=== PATIENT | female | born 1980 ===

== ENCOUNTER 2017-10-18 20:45 | Emergency (ER) | payer MEDICAID, OTHER ==
--- NOTE | 2017-10-18 21:09 | ED PDOC ---
HPI: Psych/Substance Abuse Time Seen by Provider: 10/18/17 20:56 Chief Complaint (Nursing): Psychiatric Evaluation Chief Complaint (Provider): Psychiatric evaluation ED Caveat: Uncooperative Additional Complaint(s): Nenita Brambila, a 37 year old female, was brought to the emergency department via EMS from the custodial for psychiatric evaluation after expressing suicidal ideations. Patient is extremely agitated upon arrival, uncooperative, refusing vitals and refusing to answer provider questions. No physical complaints expressed and no reports of trauma. Past Medical History Reviewed: Historical Data, Nursing Documentation, Vital Signs, Unable To Obtain (uncooperative, medical history obtained from prior charts) - Medical History PMH: Anemia, Anxiety, Asthma, Bipolar Disorder, CAD, Depression, Gastritis, HTN , Hypercholesterolemia, Schizophrenia - Surgical History Other surgeries: skin graft to face - Family History Family History: States: Unknown Family Hx - Living Arrangements Living Arrangements: Other (custodial) - Home Medications Home Medications: Ambulatory Orders Medication Instructions Recorded Benztropine [Cogentin] 1 mg PO 0800,1999 #30 tab 05/25/17 Metoprolol Succinate XL [Toprol XL] 12.5 mg PO 0800,1300 #14 tab 05/25/17 Pantoprazole [Protonix EC Tab] 40 mg PO 0600,1600 #14 ect 05/25/17 QUEtiapine [Seroquel] 100 mg PO 1999 #14 tab 05/25/17 Topiramate [Topamax] 25 mg PO 0800 #14 tab 05/25/17 Topiramate [Topamax] 50 mg PO 1300 #14 tab 05/25/17 Topiramate [Topamax] 100 mg PO 1999 #14 tab 05/25/17 Zolpidem [Ambien] 10 mg PO 2000 PRN #14 tab 05/25/17 clonazePAM [clonAZEPAM] 1 mg PO 0800,1300 #30 tab 05/25/17 - Allergies Allergies/Adverse Reactions: Allergies Allergy/AdvReac Type Severity Reaction Status Date / Time diphenhydramine HCl Allergy ANAPHYLAXIS Verified 10/18/17 20:47 [From Benadryl] FISH Allergy RASH Verified 10/18/17 20:47 fluphenazine [From Prolixin] Allergy ANAPHYLAXIS Verified 10/18/17 20:47 haloperidol [From Haldol] AdvReac SHORTNESS Verified 10/18/17 20:47 OF BREATH haloperidol lactate AdvReac SHORTNESS Verified 10/18/17 20:47 [From Haldol] OF BREATH seafood Allergy RASH Uncoded 07/18/17 16:18 Review of Systems Review Of Systems: ROS cannot be obtained secondary to pt's inabilty to answer questions. (patient unwilling to answer questions) Physical Exam - Reviewed Nursing Documentation Reviewed: Yes Vital Signs Reviewed: Yes - Physical Exam Comments: GENERAL APPEARANCE: Patient is awake, alert, agitated, yelling at ED staff. (+) flight of ideas ENMT: Mucous membranes moist. Airway patent: (-) stridor. NECK: Supple, FROM HEART AND CARDIOVASCULAR: (-) irregularity CHEST AND RESPIRATORY: (-) rales, (-) rhonchi, (-) wheezes; breath sounds equal. ABDOMEN: Soft, (-) distention, (-) tenderness, (-) guarding. NEURO AND PSYCH: Mental status as above. EOMI; (-) facial asymmetry. Gait: steady. Medical Decision Making Medical Decision Making: Time: 20:55 Impression: Psychiatric evaluation Initial Plan: --Crisis eval --1:1 observation 2139 Per crisis evaluation, patient to be discharged with the diagnosis of schizoaffective disorder per Dr Avila. Patient was referred to [facility] custodial by crisis. On exam, patient remains AAOx3, in no acute distress. On exam, neck is supple, lungs CTA, cardiac RRR, neuro exam shows no focal findings. Stable for discharge. Diagnostic results d/w the patient in great detail. Dx of schizoaffective disorder d/w the patient. Based on history, exam and diagnostic results plan will be for discharge. Advised to follow up with primary care physician / psych in 1-2 days without fail. Return to the emergency room at any time for any new or worsening symptoms. Patient states she fully agrees with and understands discharge instructions. States that she agrees with the plan and disposition. Verbalized and repeated discharge instructions and plan. I have given the patient opportunity to ask any additional questions. Scribe Attestation: Documented by Nena Medina, acting as a scribe for Dorita Spencer PA-C. Provider Scribe Attestation: All medical record entries made by the Scribe were at my direction and personally dictated by me. I have reviewed the chart and agree that the record accurately reflects my personal performance of the history, physical exam, medical decision making, and the department course for this patient. I have also personally directed, reviewed, and agree with the discharge instructions and disposition. Disposition - Clinical Impression Clinical Impression: Schizoaffective disorder - Patient ED Disposition Is Patient to be Admitted: No Counseled Patient/Family Regarding: Studies Performed, Diagnosis, Need For Followup - Disposition Referrals: [facility] [Outside] [facility] [Outside] Disposition: Routine/Home Disposition Time: 21:38 Condition: STABLE Additional Instructions: The emergency medical care you received today was directed at your acute symptoms. If you were prescribed any medication, please fill it and take as directed. It may take several days for your symptoms to resolve. Return to the Emergency Department if your symptoms worsen, do not improve, or if you have any other problems. Please contact your doctor in 2 days for re-evaluation and follow up / or call one of the physicians/clinics you have been referred to that are listed on the Patient Visit Information form that is included in your discharge packet. Bring any paperwork you were given at discharge with you along with any medications you are taking to your follow up visit. Our treatment cannot replace ongoing medical care by a primary care provider (PCP) outside of the emergency department. Instructions: Schizoaffective Disorder Forms: [employer] (Telugu) Print Language: PARAGUAYAN - POA Present On Arrival: None
[2017-10-18 22:17] VITALS: BP 118/72; PULSE 81; RESP 18; TEMP 97.7; O2SAT 98
== END 2017-10-18 22:00 | disposition home or self-care (01) ==
LOC: H.ER 20:45
DX: F25.9 Schizoaffective disorder, unspecified (principal); Z86.59 Personal history of other mental and behavioral disorders; E78.00 Pure hypercholesterolemia, unspecified; I10 Essential (primary) hypertension; I25.10 Atherosclerotic heart disease of native coronary artery without angina pectoris; J45.909 Unspecified asthma, uncomplicated; Z00.8 Encounter for other general examination

== ENCOUNTER 2017-10-18 23:23 | Emergency (ER) | payer OTHER ==
[2017-10-18 23:27] VITALS: BP 128/86; PULSE 89; RESP 16; TEMP 98.8; O2SAT 99
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
== END 2017-10-19 07:14 | disposition home or self-care (01) ==
LOC: H.ER 23:23
DX: Z59.0 Homelessness (principal); Z86.59 Personal history of other mental and behavioral disorders; I10 Essential (primary) hypertension; J45.909 Unspecified asthma, uncomplicated; I25.10 Atherosclerotic heart disease of native coronary artery without angina pectoris; E78.00 Pure hypercholesterolemia, unspecified

== ENCOUNTER 2017-10-19 17:47 | Emergency (ER) | payer OTHER ==
--- NOTE | 2017-10-19 18:13 | ED PDOC ---
HPI: Psych/Substance Abuse Time Seen by Provider: 10/19/17 17:50 Chief Complaint (Nursing): Psychiatric Evaluation Chief Complaint (Provider): Denies complaints ED Caveat: Acuity of Condition History Per: Patient History/Exam Limitations: no limitations Current Symptoms Are (Timing): Still Present Additional Complaint(s): 37 yo female with history of schizoaffective disorder presents for evaluation with EMS. According to EMS pt was aggressive at residential after being told she could not stay. Pt was seen twice in ER yesterday. No chest pain, SOB, N/V/ D. Pt deneis SI/HI. PT states that she is not hearing voices or seeing things. Pt upset. States she is not allow in the shelters but has no where else to go. Past Medical History Reviewed: Historical Data, Nursing Documentation, Vital Signs Vital Signs: Last Vital Signs Temp 98 F 10/19/17 18:00 Pulse 128 H 10/19/17 18:00 Resp 20 10/19/17 18:00 BP Pulse Ox 99 10/19/17 18:00 - Medical History PMH: Anemia, Anxiety, Asthma, Bipolar Disorder, CAD, Depression, Gastritis, HTN , Hypercholesterolemia, Schizophrenia Denies: Diabetes, Hepatitis, HIV, End Stage Renal Disease, Chronic Kidney Disease, Seizures, Sexually Transmitted Disease - Family History Family History: States: Unknown Family Hx - Immunization History Hx Tetanus Toxoid Vaccination: No Hx Influenza Vaccination: Yes Hx Pneumococcal Vaccination: No - Home Medications Home Medications: Ambulatory Orders Medication Instructions Recorded Benztropine [Cogentin] 1 mg PO 0800,1999 #30 tab 05/25/17 Metoprolol Succinate XL [Toprol XL] 12.5 mg PO 0800,1300 #14 tab 05/25/17 Pantoprazole [Protonix EC Tab] 40 mg PO 0600,1600 #14 ect 05/25/17 QUEtiapine [Seroquel] 100 mg PO 1999 #14 tab 05/25/17 Topiramate [Topamax] 25 mg PO 0800 #14 tab 05/25/17 Topiramate [Topamax] 50 mg PO 1300 #14 tab 05/25/17 Topiramate [Topamax] 100 mg PO 1999 #14 tab 05/25/17 Zolpidem [Ambien] 10 mg PO 1999 PRN #14 tab 05/25/17 clonazePAM [clonAZEPAM] 1 mg PO 0800,1300 #30 tab 05/25/17 - Allergies Allergies/Adverse Reactions: Allergies Allergy/AdvReac Type Severity Reaction Status Date / Time diphenhydramine HCl Allergy ANAPHYLAXIS Verified 10/19/17 18:00 [From Benadryl] FISH Allergy RASH Verified 10/19/17 18:00 fluphenazine [From Prolixin] Allergy ANAPHYLAXIS Verified 10/19/17 18:00 haloperidol [From Haldol] AdvReac SHORTNESS Verified 10/19/17 18:00 OF BREATH haloperidol lactate AdvReac SHORTNESS Verified 10/19/17 18:00 [From Haldol] OF BREATH seafood Allergy RASH Uncoded 10/19/17 18:00 Review of Systems ROS Statement: Except As Marked, All Systems Reviewed And Found Negative Constitutional: Negative for: Fever, Chills Respiratory: Negative for: Cough, Shortness of Breath Gastrointestinal: Negative for: Nausea, Vomiting, Abdominal Pain Genitourinary Female: Negative for: Dysuria Musculoskeletal: Negative for: Neck Pain Physical Exam - Reviewed Nursing Documentation Reviewed: Yes Vital Signs Reviewed: Yes - Physical Exam Appears: Positive for: Well, Non-toxic, No Acute Distress Head Exam: Positive for: ATRAUMATIC, NORMAL INSPECTION, NORMOCEPHALIC Skin: Positive for: Normal Color, Warm, DRY Eye Exam: Positive for: Normal appearance ENT: Positive for: Normal ENT Inspection Neck: Positive for: Normal, Painless ROM Cardiovascular/Chest: Positive for: Regular Rate, Rhythm Respiratory: Positive for: Normal Breath Sounds. Negative for: Accessory Muscle Use, Respiratory Distress Back: Positive for: Normal Inspection Extremity: Positive for: Normal ROM Neurologic/Psych: Positive for: Alert, Oriented - ECG O2 Sat by Pulse Oximetry: 99 Disposition - Clinical Impression Clinical Impression: Schizoaffective disorder - Patient ED Disposition Is Patient to be Admitted: No Counseled Patient/Family Regarding: Diagnosis, Need For Followup - Disposition Disposition: Routine/Home Disposition Time: 18:11 Condition: STABLE Instructions: Schizoaffective Disorder
[2017-10-19 18:16] VITALS: RESP 19; TEMP 97
[2017-10-19 18:28] VITALS: BP 120/90
[2017-10-19 18:32] VITALS: PULSE 76
[2017-10-19 18:36] VITALS: O2SAT 99
== END 2017-10-19 18:32 | disposition home or self-care (01) ==
LOC: H.ER 17:47
DX: F25.9 Schizoaffective disorder, unspecified (principal)

== ENCOUNTER 2018-01-20 20:21 | Inpatient (IN) | payer MEDICAID, OTHER ==
[2018-01-20 20:21] VITALS: BMI 32.4
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
[2018-01-20 21:55] LABS: BASO # 0.1 K/uL (0.0-0.2); BASO % 0.8 % (0.0-2.0); EOS % 0.2 % (0.0-4.0); HEMOGLOBIN 11.3 g/dL (12.0-16.0); LYMPH # 1.8 K/uL (1.0-4.3); LYMPH % 18.9 % (20.0-40.0); MEAN CELL VOLUME 82.5 fl (81.0-99.0); MEAN CORPUSCULAR HEMOGLOBIN 27.3 pg (27.0-31.0); MEAN CORPUSCULAR HGB CONC 33.1 g/dL (33.0-37.0); MEAN PLATELET VOLUME 6.4 fl (7.2-11.7); MONO # 0.6 K/uL (0.0-0.8); MONO % 6.1 % (0.0-10.0); NEUT # 6.9 K/uL (1.8-7.0); RBC 4.13 Mil/uL (3.80-5.20); RED CELL DISTRIBUTION WIDTH 13.7 % (11.5-14.5); WHITE BLOOD COUNT 9.3 K/uL (4.8-10.8)
[2018-01-20 22:27] LABS: SQUAMOUS EPITHIAL 2 /hpf (0-5); URINE BILIRUBIN NEGATIVE (NEGATIVE); URINE BLOOD NEGATIVE (NEGATIVE); URINE CLARITY SLIGHTY-CLOUDY (Clear); URINE COLOR YELLOW (YELLOW); URINE GLUCOSE (UA) NEG (NEGATIVE); URINE LEUKOCYTE ESTERASE NEG Leu/uL (Negative); URINE PROTEIN NEGATIVE (NEGATIVE); URINE UROBILINOGEN 0.2-1.0 mg/dL (0.2-1.0)
[2018-01-20 22:31] LABS: BENZODIAZEPINES, UR NEGATIVE (NEGATIVE)
[2018-01-20 22:35] LABS: ALB/GLOB RATIO 1.3 (1.0-2.1); ALBUMIN 3.8 g/dL (3.5-5.0); ALT/SGPT 21 U/L (9-52); AST/SGOT 23 U/L (14-36); BLOOD UREA NITROGEN 12 mg/dl (7-17); CALCIUM 8.7 mg/dL (8.4-10.2); GFR NON-AFRICAN AMERICAN > 60
[2018-01-20 23:02] LABS: BARBITURATES, UR NEGATIVE (NEGATIVE); OPIATES, UR NEGATIVE (NEGATIVE); PHENCYCLIDINE, UR NEGATIVE (NEGATIVE)
--- NOTE | 2018-01-20 23:06 | ED PDOC ---
- Laboratory Results Result Diagrams: 01/20/18 21:45 01/20/18 22:00 - ECG O2 Sat by Pulse Oximetry: 98 (RA) - Progress ED Course And Treament: Case endorsed to software writer from [facility] pending crisis eval Patient evaluated by vegetable farmworker; to be admitted as per Dr. Allan CXR reviewed from Liat's visit earlier today; no acute findings Medical Decision Making Medical Decision Making: Patient medically stable for psych admission Disposition - Clinical Impression Clinical Impression: Schizoaffective disorder - POA Present On Arrival: None - Disposition Disposition: Admitted as In-Patient Disposition Time: 03:10 Condition: STABLE Forms: [email or web address] (Upper Sorbian)
[2018-01-21 04:37] VITALS: O2SAT 99
[2018-01-21] MEDS ORDERED: Alum-Mag Hydrox-Simethicone Susp (30 mL) PO PRN (05:06)
[2018-01-21] MEDS ORDERED: Magnesium Hydroxide Susp 30 ml UD PO PRN (05:06)
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
[2018-01-21] MEDS: Multivitamin With Minerals Tab PO SCH (08:43)
[2018-01-21] MEDS: Pantoprazole 40 mg EC Tab PO SCH (08:43)
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
--- NOTE | 2018-01-21 15:13 | CARD ---
APPROVED REPORT Date of service: 01/20/2018 EKG Measurement Heart [id number] <Conclusion> Normal sinus rhythm Normal ECG
[2018-01-22] MEDS: Multivitamin With Minerals Tab PO SCH (08:18)
[2018-01-22] MEDS: Pantoprazole 40 mg EC Tab PO SCH (08:18)
--- NOTE | 2018-01-22 09:09 | PCM.PYCHPN ---
Psychiatric Progress Note - Psychiatric Progress Note Patient seen today, length of contact: pt seen and evaluated Patient Chief Complaint: pt was admitted because of severe depression and suicidal attempt .pt is less depressed and less anxious but very demanding and intrusive on unit and with poor unsight . Medication Change: No Medical Record Reviewed: Yes Mental Status Examination - Cognitive Function Orientation: Person, Place, Situation, Time Attention: Poor Concentration: Poor Association: WNL Fund of Knowledge: WNL - Mood Mood: Depressed - Affect Affect: Other (Labile, Erratic) - Formal Thought Process Formal Thought Process: Loosening of associations, Circumstantial - Homicidal Ideation Homicidal Ideation: No Goal/Treatment Plan - Goal/Treatment Plan Progress Toward Problem(s) and Goals/Treatment Plan: will continue to stabilize pt with current regimen of meds and reassurance and support provided .
[2018-01-23] MEDS: Pantoprazole 40 mg EC Tab PO SCH (08:36)
[2018-01-23] MEDS: Multivitamin With Minerals Tab PO SCH (08:38)
--- NOTE | 2018-01-23 14:20 | PCM.PYCHPN ---
Psychiatric Progress Note - Psychiatric Progress Note Patient seen today, length of contact: pt seen and evaluated Patient Chief Complaint: pt remains with a lot of attention seeking somatic complaints and need constant reassurance .pt is less depressed and less anxious but very demanding and says she wants to be placed in horticulture supervisor care but still with poor unsight .about her psychiatric issues. Medication Change: Yes (increase ambien 10 mg hs) Mental Status Examination - Cognitive Function Orientation: Person, Place, Situation, Time - Mood Mood: Depressed - Affect Affect: Other (Labile, Erratic) - Formal Thought Process Formal Thought Process: Loosening of associations, Circumstantial - Homicidal Ideation Homicidal Ideation: No Goal/Treatment Plan - Goal/Treatment Plan Progress Toward Problem(s) and Goals/Treatment Plan: will continue to reassure pt and provide support and referred to hospitalist fir c/o pain .will increase ambien to address sleep issues.
[2018-01-23 15:55] VITALS: PULSE 74; RESP 19
[2018-01-24 06:56] VITALS: BP 108/74; TEMP 98.1
[2018-01-24] MEDS: Pantoprazole 40 mg EC Tab PO SCH (08:30)
[2018-01-24] MEDS: Multivitamin With Minerals Tab PO SCH (08:31)
--- NOTE | 2018-01-24 08:57 | PCM.PYCHPN ---
Psychiatric Progress Note - Psychiatric Progress Note Patient seen today, length of contact: Pt evaluated, case discussed w/ team, chart reviewed Patient Chief Complaint: "I need help!" Problems Identified/Issues Discussed: Patient is demanding more Ambien and local intermodal truck driver placement. Paving Contractor informed patient that we can not provide housing and she starting yelling and crying hysterically, saying that she will kill herself if we don't find her local intermodal truck driver placement. Patient is manipulative and uncooperative. She does not want to change her psychiatric medications at this time. Paving Contractor attempted to provide psychoeducation to the patient, but the patient would not stop yelling at the grant writer. Medication Change: No Medical Record Reviewed: Yes Consults ordered or reviewed: Medicine consult Mental Status Examination - Cognitive Function Orientation: Person, Place, Situation, Time Memory: Intact Attention: WNL Concentration: WNL Association: WNL Fund of Knowledge: [facility] Decription of patient's judgement and insights: Poor I/J at times; patient intentionally manipulative - Mood Mood: Depressed - Affect Affect: Constricted, Other (Labile) - Speech Speech: Loud - Formal Thought Process Formal Thought Process: Circumstantial Psychotic Thoughts and Behaviors: NO AH/VH/paranoia/delusions - Suicidal Ideation Suicidal Ideation: No Plan: Patient makes suicidal threats when told she can not get something that she does not want; patient is overtly manipulative - Homicidal Ideation Homicidal Ideation: No Goal/Treatment Plan - Goal/Treatment Plan Need for Continued Stay: Discharge may exacerbated symptoms Progress Toward Problem(s) and Goals/Treatment Plan: Borderline Personality Disorder; Schizoaffective Disorder -Medicine consult -Individual and group therapy -Continue Seroquel, Klonopin, Topamax and Cogentin; patient is not agreeable to any medication changes at this time -Disposition planning Estimated Date of D/C: 01/26/18
--- NOTE | 2018-01-24 14:50 | CARD ---
APPROVED REPORT Date of service: 01/23/2018 EKG Measurement Heart [id number] <Conclusion> Sinus bradycardia Otherwise normal ECG
[2018-01-25] MEDS: Multivitamin With Minerals Tab PO SCH (08:42)
[2018-01-25] MEDS: Pantoprazole 40 mg EC Tab PO SCH (08:43)
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
== END 2018-01-25 10:30 | disposition home or self-care (01) | DRG 428 ==
LOC: H.ER 20:21 → H.ERHOLD 01-21 03:10 → H.STEP 01-21 05:02
PROVIDERS: ADMIT Psychiatry & Neurology Psychiatry; ATTEND Psychiatry & Neurology Psychiatry
PROC: GZHZZZZ Group Psychotherapy (ICD-10-PCS; principal; 2018-01-21)
DX: F60.3 Borderline personality disorder (principal); F25.9 Schizoaffective disorder, unspecified; Z59.0 Homelessness; R45.851 Suicidal ideations; I10 Essential (primary) hypertension; E78.00 Pure hypercholesterolemia, unspecified; I25.10 Atherosclerotic heart disease of native coronary artery without angina pectoris; J45.909 Unspecified asthma, uncomplicated; K29.70 Gastritis, unspecified, without bleeding; R07.89 Other chest pain; Z91.013 Allergy to seafood

== ENCOUNTER 2018-05-31 15:02 | Inpatient (IN) | payer MEDICAID, OTHER ==
[2018-05-31 15:02] VITALS: BMI 32.4
--- NOTE | 2018-05-31 15:43 | ED PDOC ---
HPI: Psych/Substance Abuse Time Seen by Provider: 05/31/18 15:26 Chief Complaint (Nursing): Psychiatric Evaluation Chief Complaint (Provider): Psychiatric Evaluation History Per: Patient, EMS History/Exam Limitations: clinical condition Current Symptoms Are (Timing): Still Present Additional Complaint(s): 38 year old female presents to the ED via EMS accompanied by Aldo TAM for a psychiatric evaluation. As per EMS, patient was removed from her [facility] psychiatric appointment after she became upset and began demanding she be put in a shelter care facility when they informed her she was cleared for discharge. Upon arrival, patient with flight of ideas and unable to be redirected. Patient states that she always gets turned away from shelter care facilities and told triage that she is suicidal and wants to hang herself or jump in front of a car. When asked any questions about this or if she could elaborate, she would not answer the questions appropriately, thus limiting history and ROS. PMD: none provided LMP: present Past Medical History Reviewed: Historical Data, Nursing Documentation, Vital Signs Vital Signs: Last Vital Signs Temp 98.2 F 05/31/18 15:05 Pulse 95 H 05/31/18 15:05 Resp 16 05/31/18 15:05 BP 129/97 H 05/31/18 15:05 Pulse Ox 100 05/31/18 15:05 - Medical History PMH: Anemia, Anxiety, Asthma, Bipolar Disorder, CAD, Depression, Gastritis, HTN, Hypercholesterolemia, Schizophrenia - Surgical History Other surgeries: skin graft as per old records - Family History Family History: States: Unknown Family Hx - Home Medications Home Medications: Ambulatory Orders Medication Instructions Recorded Benztropine [Benztropine Mesylate] 1 mg PO 0804/12/18 Benztropine [Benztropine Mesylate] 1 mg PO 199904/12/18 QUEtiapine [Seroquel] 100 mg PO 199904/12/18 Topiramate [Topamax] 50 mg PO 0804/12/18 Topiramate [Topamax] 50 mg PO 1300 04/12/18 Topiramate [Topamax] 100 mg PO 199904/12/18 Zolpidem [Ambien] 10 mg PO 199904/12/18 clonazePAM [clonAZEPAM] 0.5 mg PO 1330 04/12/18 Fexofenadine/Pseudoephedrine 1 each PO 05/31/18 [Keisha-D 24 Hour Tablet] Fluticasone Nasal [Flonase] 1 actuation NS 05/31/18 clonazePAM [Klonopin] 0.5 mg PO 199905/31/18 - Allergies Allergies/Adverse Reactions: Allergies Allergy/AdvReac Type Severity Reaction Status Date / Time diphenhydramine HCl Allergy ANAPHYLAXIS Verified 04/14/18 13:01 [From Benadryl] FISH Allergy RASH Verified 04/14/18 13:01 fluphenazine [From Prolixin] Allergy ANAPHYLAXIS Verified 04/14/18 13:01 haloperidol [From Haldol] AdvReac SHORTNESS Verified 04/14/18 13:01 OF BREATH haloperidol lactate AdvReac SHORTNESS Verified 04/14/18 13:01 [From Haldol] OF BREATH seafood Allergy RASH Uncoded 04/14/18 13:01 Review of Systems Review Of Systems: ROS cannot be obtained secondary to pt's inabilty to answer questions. (patient not answering questions appropriately) Physical Exam - Reviewed Nursing Documentation Reviewed: Yes Vital Signs Reviewed: Yes - Physical Exam Comments: GENERAL APPEARANCE: Patient is awake, alert, and tearful. (+) emotionally distraught SKIN: Warm, dry; (-) cyanosis EYES: (-) conjunctival injection ENMT: Mucous membranes moist. Airway patent: (-) stridor. NECK: Supple, FROM HEART AND CARDIOVASCULAR: (-) irregularity CHEST AND RESPIRATORY: (-) rales, (-) rhonchi, (-) wheezes; breath sounds equal. Respirations even and nonlabored. ABDOMEN: Soft, (-) distention, (-) tenderness, (-) guarding. NEURO AND PSYCH: Mental status as above. Pupils equal and reactive (+) Flight of ideas. (+) [place] thoughts. (-) facial asymmetry. Gait: steady. - Laboratory Results Result Diagrams: 05/31/18 19:17 05/31/18 19:17 - ECG O2 Sat by Pulse Oximetry: 100 (RA) Pulse Ox Interpretation: Normal Medical Decision Making Medical Decision Making: Initial Impression: psychiatric evaluation Time: 1530 Initial Plan: --Crisis evaluation ordered --Patient placed on a 1:1 observation for safety and elopement risk --Ativan 2mg PO --Reevaluate 1700 Patient sleeping comfortably in room. 1800 Crisis at bedside. 1825 Per crisis evaluation, patient to be admitted for depression per Dr Marshall. Additional orders placed for medical clearance. 1900 Patient resting comfortably on re-evaluation. U/A reviewed with notable hematuria however patient currently menstruating. EKG: NSR @ 79bpm, (-) ST elevation, QTc 449 1930 CXR with NAD as read by Tj GÓMEZ Remainder of labs reviewed and grossly unremarkable. Patient is medically stable for psychiatric admission. Arrangements made for admission. Vitals stable. Scribe Attestation: Documented by Reena Lockhart, acting as a scribe for Dorita Spencer PA-C. Provider Scribe Attestation: All medical record entries made by the Scribe were at my direction and personally dictated by me. I have reviewed the chart and agree that the record accurately reflects my personal performance of the history, physical exam, medical decision making, and the department course for this patient. I have also personally directed, reviewed, and agree with the discharge instructions and disposition. Disposition - Clinical Impression Clinical Impression: Depression - Patient ED Disposition Is Patient to be Admitted: Yes (psych) Counseled Patient/Family Regarding: Studies Performed, Diagnosis - Disposition Disposition Time: 18:25 Condition: STABLE - Pt Status Changed To: Hospital Disposition Of: Inpatient (psych) - Admit Certification Admit to Inpatient:: After my assessment, the patient will require hospitalization for at least two midnights. This is because of the severity of symptoms shown, intensity of services needed, and/or the medical risk in this patient being treated as an outpatient. - POA Present On Arrival: None
[2018-05-31 18:59] LABS: SQUAMOUS EPITHIAL 1 /hpf (0-5); URINE BILIRUBIN NEGATIVE (NEGATIVE); URINE BLOOD LARGE (NEGATIVE); URINE CLARITY SLIGHTY-CLOUDY (Clear); URINE COLOR YELLOW (YELLOW); URINE GLUCOSE (UA) NEG (NEGATIVE); URINE LEUKOCYTE ESTERASE NEG Leu/uL (Negative); URINE PROTEIN NEGATIVE (NEGATIVE); URINE UROBILINOGEN 0.2-1.0 mg/dL (0.2-1.0)
[2018-05-31 19:18] LABS: PHENCYCLIDINE, UR NEGATIVE (NEGATIVE)
[2018-05-31 19:25] LABS: BASO # 0.1 K/uL (0.0-0.2); BASO % 0.8 % (0.0-2.0); EOS # 0.1 K/uL (0.0-0.7); EOS % 0.7 % (0.0-4.0); HEMOGLOBIN 12.7 g/dL (12.0-16.0); LYMPH # 2.5 K/uL (1.0-4.3); LYMPH % 23.8 % (20.0-40.0); MEAN CORPUSCULAR HEMOGLOBIN 26.3 pg (27.0-31.0); MEAN CORPUSCULAR HGB CONC 32.5 g/dL (33.0-37.0); MEAN PLATELET VOLUME 6.9 fl (7.2-11.7); MONO # 0.7 K/uL (0.0-0.8); MONO % 6.2 % (0.0-10.0); NEUT # 7.3 K/uL (1.8-7.0); NEUT % 68.5 % (50.0-75.0); NRBC % 0.1 % (0.0-0.0); RBC 4.84 Mil/uL (3.80-5.20); RED CELL DISTRIBUTION WIDTH 14.6 % (11.5-14.5); WHITE BLOOD COUNT 10.6 K/uL (4.8-10.8)
[2018-05-31 19:31] LABS: ALB/GLOB RATIO 1.4 (1.0-2.1); ALBUMIN 4.6 g/dL (3.5-5.0); ALT/SGPT 22 U/L (9-52); AST/SGOT 24 U/L (14-36); BLOOD UREA NITROGEN 12 mg/dl (7-17); CALCIUM 9.2 mg/dL (8.4-10.2); GFR NON-AFRICAN AMERICAN > 60
[2018-05-31 19:32] LABS: BARBITURATES, UR NEGATIVE (NEGATIVE); BENZODIAZEPINES, UR NEGATIVE (NEGATIVE); OPIATES, UR NEGATIVE (NEGATIVE)
[2018-05-31] MEDS ORDERED: Alum-Mag Hydrox-Simethicone Susp (30 mL) PO PRN (22:12)
[2018-05-31] MEDS ORDERED: Magnesium Hydroxide Susp 30 ml UD PO PRN (22:12)
[2018-05-31 22:13] VITALS: O2SAT 98
[2018-05-31 23:25] VITALS: RESP 18
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
--- NOTE | 2018-06-01 07:39 | RAD ---
Date of service: 05/31/2018 PROCEDURE: CHEST RADIOGRAPH, 1 VIEW HISTORY: psych admit COMPARISON: 10/31/2015 FINDINGS: LUNGS: Clear. PLEURA: No pneumothorax or pleural fluid seen. CARDIOVASCULAR: No aortic atherosclerotic calcification present. Normal. OSSEOUS STRUCTURES: No significant abnormalities. VISUALIZED UPPER ABDOMEN: Normal. OTHER FINDINGS: None. IMPRESSION: No active disease.No interval pathology noted.
--- NOTE | 2018-06-01 09:00 | CARD ---
APPROVED REPORT Date of service: 05/31/2018 EKG Measurement Heart [id number] <Conclusion> Normal sinus rhythm Possible Left atrial enlargement Borderline ECG
[2018-06-01 09:54] VITALS: BP 109/73; PULSE 93; TEMP 98.3
[2018-06-01] MEDS ORDERED: DiphenhydrAMINE 50 mg/ml Inj IM PRN (13:28)
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
--- NOTE | 2018-06-01 18:03 | PCM.PYCHDC ---
Mental Status Examination - Mental Status Examination Orientation: Person, Place, Situation Memory: Intact Mood: Anxious Affect: Constricted Speech: Appropriate Attention: WNL Concentration: WNL Association: WNL Fund of Knowledge: WNL Formal Thought Process: Circumstantial Description of patient's judgement and insight: partial insight fair judgment Psychotic Thoughts and Behaviors: pt denied psychotic symptoms, non elicited Suicidal Ideation: No Current Homicidal Ideation?: No Discharge Summary - Discharge Note Reason for Hospitalization: pt is 38ys old male with previous psychiatric diagnosis of schizoaffective disorder and borderline personality disorder brought to ER by EMS after verbalizing suicidal ideation with plan to overdose or hang herself while in her follow up visit with private psychiatrist pt on evaluation,today with treatment team continues to verbalize thoughts of hurting herself on the unit without a specific paln, pt with circumstantial and thought process overproductive speech , pt angry and blaming the team for not finding her housing , pt is resistant to redirection , demanding , with delusions of persecution towards staff Laboratory Data: Abnormal Lab Results 05/31/18 05/31/18 05/31/18 18:49 18:49 19:17 WBC 10.6 RBC 4.84 Hgb 12.7 Hct 39.2 MCV 81.0 MCH 26.3 L MCHC 32.5 L RDW 14.6 H Plt Count 281 MPV 6.9 L Neut % (Auto) 68.5 Lymph % (Auto) 23.8 [place] % (Auto) 6.2 Eos % (Auto) 0.7 Baso % (Auto) 0.8 Neut # (Auto) 7.3 H Lymph # (Auto) 2.5 [place] # (Auto) 0.7 Eos # (Auto) 0.1 Baso # (Auto) 0.1 Sodium Potassium Chloride Carbon Dioxide Anion Gap BUN Creatinine Est GFR ( Amer) Est GFR (Non-Af Amer) Random Glucose Calcium Total Bilirubin AST ALT Alkaline Phosphatase Total Protein Albumin Globulin Albumin/Globulin Ratio Urine Color Yellow Urine Clarity Slighty-cloudy Urine pH 6.0 Ur Specific [place] 1.017 Urine Protein Negative Urine Glucose (UA) Neg Urine Ketones Negative Urine Blood Large Urine Nitrate Negative Urine Bilirubin Negative Urine Urobilinogen 0.2-1.0 Ur Leukocyte Esterase Neg Urine RBC (Auto) 75 H Urine Microscopic WBC 3 Ur Squamous Epith Cells 1 Urine Opiates Screen Negative Urine Methadone Screen Negative Ur Barbiturates Screen Negative Ur Phencyclidine Scrn Negative Ur Amphetamines Screen Negative U Benzodiazepines Scrn Negative U Oth Cocaine Metabols Negative U Cannabinoids Screen Negative Alcohol, Quantitative 05/31/18 19:17 WBC RBC Hgb Hct MCV MCH MCHC RDW Plt Count MPV Neut % (Auto) Lymph % (Auto) [place] % (Auto) Eos % (Auto) Baso % (Auto) Neut # (Auto) Lymph # (Auto) [place] # (Auto) Eos # (Auto) Baso # (Auto) Sodium 141 Potassium 3.7 Chloride 108 H Carbon Dioxide 22 Anion Gap 15 BUN 12 Creatinine 0.6 L Est GFR ( Amer) > 60 Est GFR (Non-Af Amer) > 60 Random Glucose 90 Calcium 9.2 Total Bilirubin 0.2 AST 24 ALT 22 Alkaline Phosphatase 85 Total Protein 7.9 Albumin 4.6 Globulin 3.3 Albumin/Globulin Ratio 1.4 Urine Color Urine Clarity Urine pH Ur Specific [place] Urine Protein Urine Glucose (UA) Urine Ketones Urine Blood Urine Nitrate Urine Bilirubin Urine Urobilinogen Ur Leukocyte Esterase Urine RBC (Auto) Urine Microscopic WBC Ur Squamous Epith Cells Urine Opiates Screen Urine Methadone Screen Ur Barbiturates Screen Ur Phencyclidine Scrn Ur Amphetamines Screen U Benzodiazepines Scrn U Oth Cocaine Metabols U Cannabinoids Screen Alcohol, Quantitative < 10 Consultations:: List each consultation separately and include: 1. Reason for request. 2. Findings. 3. Follow-up Summary of Hospital Course include:: 1. Description of specific treatment plan utilized for patients during their course of treatmen. 2. Summarize the time- course for resolution of acute symptoms and/or regressed behaviors. 3. Describe issues identified and worked on during hospitalization. 4. Describe medication utilized. 5. Describe medical problems identified and treated. 6. Reassessment of suicide risk Summary of Hospital Course: pt on admission initially reported having thoughts to hurt herself without an active plan on the unit , pt was placed on 1;1 observation on evaluation during treatment team, pt reported that she presented to ER as she needs help with housing , team discussed with pt possible referral to [facility] program, pt was angry and irritable, stated she needs instant help with housing pt became uncooperative with treatment, refusing blood work and selective with medication compliance pt then requested her cell phone , discussed with pt her needs will be taken car e of upon availability of staff, she became more angry, verbally abusive to staff members threatening towards them, redirection offered but patient behaviour escalated code martínez was called as patient was loud and disruptive to other peers treatment pt was placed in opened seclusion, refused medications and continued to be loud had to be in closed seclusion for 15 minutes given klonopin 1mg became calmer and was allowed on the unit pt continued to reuse treatment paln and medications offered, continued to verbalize she is in the hospital only for housing pt was found at current mental status not danger to self or others as she denied any current suicidal or homicidal ideation denied perceptual disturbances, pt was discharged after contacting clyde jones by social science analyst with [facility] that pt would follow up with partial program upon discharge - Final Diagnosis (DSM 5) Condition upon Discharge: STABLE DSM 5: borderline personality disorder history of schizoaffective disorder Disposition: HOME/ ROUTINE Follow-up Treatment Plan: start klonopin 0.5mg tid topamax 50bid and 100qhs [id number] qhs cbt group and supportive therapy social science analyst will be contacting family preservation caseworker - Antipsychotic Medications Pt discharged on 2 or more routine antipsychotic medications: No
== END 2018-06-01 16:10 | disposition home or self-care (01) | DRG 430 ==
LOC: H.ER 15:02 → H.ERHOLD 18:29 → H.PSYCH 22:07
PROVIDERS: ADMIT Psychiatry & Neurology Psychiatry; ATTEND Psychiatry & Neurology Psychiatry
PROC: GZHZZZZ Group Psychotherapy (ICD-10-PCS; principal; 2018-05-31)
PROC: GZ58ZZZ Individual Psychotherapy, Cognitive-Behavioral (ICD-10-PCS; 2018-05-31)
DX: F25.9 Schizoaffective disorder, unspecified (principal); F60.3 Borderline personality disorder; R45.851 Suicidal ideations; F41.9 Anxiety disorder, unspecified; E78.00 Pure hypercholesterolemia, unspecified; I10 Essential (primary) hypertension; J45.909 Unspecified asthma, uncomplicated; D64.9 Anemia, unspecified; Z59.0 Homelessness